=== PATIENT | female | born 1960 | race American Indian/Alaskan Native ===

== ENCOUNTER 2017-08-25 13:06 | Emergency (ER) | payer OTHER ==
[2017-08-25 13:33] VITALS: BP 151/96
--- NOTE | 2017-08-25 14:06 | Emergency Department Report ---
HPI - General Chief Complaint: Fall Time Seen by Provider: 08/25/17 13:37 - HPI HPI: 57-year-old female presents to the emergency department by EMS from work after patient slipped on some water that was on the floor and fell onto her left side. She presents with left knee pain, left hamstring pain, left hip pain and left shoulder pain. She denies hitting her head or any loss of consciousness. She was given some Toradol in route with some improvement. She has a past medical history of [id number] diabetes. She has a primary care physician for follow-up. ED Past Medical Hx - Past Medical History Previous Medical History?: No - Surgical History Additional Surgical History: Hysterectomy, breast reduction - Social History Smoking Status: Never Smoker Substance Use Type: None - Medications Home Medications: Home Medications Medication Instructions Recorded Confirmed Last Taken Type methOCARBAMOL [Robaxin TAB] 500 mg PO BID PRN #12 tab 08/25/17 Unknown Rx ED Review of Systems ROS: Stated complaint: DISLOCATED HIP Other details as noted in HPI Comment: All other systems reviewed and negative Constitutional: denies: chills, fever Eyes: denies: eye pain, eye discharge, vision change ENT: denies: ear pain, throat pain Respiratory: denies: cough, shortness of breath, wheezing Cardiovascular: denies: chest pain, palpitations Gastrointestinal: denies: abdominal pain, nausea, diarrhea Genitourinary: denies: urgency, dysuria, discharge Musculoskeletal: arthralgia, myalgia. denies: back pain Skin: denies: rash, lesions Neurological: denies: headache, weakness, paresthesias Physical Exam - Physical Exam Vital Signs: Vital Signs 08/25/17 13:30 Temperature 98.6 F Pulse Rate 88 Respiratory 18 Rate Blood Pressure 151/96 O2 Sat by Pulse 98 Oximetry Physical Exam: GENERAL: The patient is well-developed well-nourished. HENT: Normocephalic. Atraumatic. Patient has moist mucous membranes. EYES: Extraocular motions are intact. Pupils equal reactive to light bilaterally. NECK: Supple. Trachea is midline. CHEST/LUNGS: Clear to auscultation. There is no respiratory distress noted. HEART/CARDIOVASCULAR: Regular. There is no tachycardia. There is no murmur. ABDOMEN: Abdomen is soft, nontender. Patient has normal bowel sounds. There is no abdominal distention. SKIN: Skin is warm and dry. There is a small abrasion to the anterior left knee. NEURO: The patient is awake, alert, and oriented. The patient is cooperative. The patient has no focal neurologic deficits. The patient has normal speech and gait. MUSCULOSKELETAL: Patient has tenderness palpation to the left anterior knee. Negative anterior and posterior drawer test. No laxity to valgus or varus stress. She also has some tenderness to the left hip and left shoulder but no obvious deformity. There is some decreased range of motion of the left lower extremity secondary to pain. Radial pulse +2 over 4 to the left wrist. ED Course Vital Signs 08/25/17 13:30 Temperature 98.6 F Pulse Rate 88 Respiratory 18 Rate Blood Pressure 151/96 O2 Sat by Pulse 98 Oximetry ED Medical Decision Making - Radiology Data Radiology results: image reviewed interpreted by me: X-ray of the left femur, the pelvis and the left shoulder do not show any fractures, dislocations or any acute processes. - Medical Decision Making Patient had a slip and fall at work in which she says that she did a split and presents with left knee pain, left hamstring pain, left hip pain and some left shoulder pain. No hitting her head or any loss of consciousness. Vital signs stable. X-rays were done of the femur, pelvis and shoulder and they all showed no signs of fracture, dislocation or any other acute process. The patient understands that the x-rays only show bone and joint spacing and that she may need an MRI in the future to evaluate the meniscus, or any ligaments or tendons that may have been injured. She was placed in a knee immobilizer and given crutches and was seen ambulatory in the emergency department using these supports and appeared stable while doing so. She will follow-up with her primary care doctor and was given 2 different orthopedic referrals. She will return to the emergency Department with any worsening of her symptoms or any acute distress. - Differential Diagnosis fracture, dislocation, sprain, strain, spasm, contusion Critical Care Time: No Critical care attestation.: If time is entered above; I have spent that time in minutes in the direct care of this critically ill patient, excluding procedure time. ED Disposition Clinical Impression: Left leg pain Left knee pain Qualifiers: Chronicity: acute Qualified Code(s): M25.562 - Pain in left knee Left shoulder pain Qualifiers: Chronicity: acute Qualified Code(s): M25.512 - Pain in left shoulder Fall Qualifiers: Encounter type: initial encounter Qualified Code(s): W19.XXXA - Unspecified fall, initial encounter Disposition: TO HOME OR SELFCARE Is pt being admited?: No Condition: Stable Instructions: Knee Pain (ED), Arthralgia (ED) Additional Instructions: Please follow-up with your primary care physician. Please follow-up with an orthopedist. I have given you a referral for 2 different orthopedic groups. Use the knee immobilizer and crutches as necessary. If you continue to have discomfort to the knee, leg and/or shoulder, you may need an MRI in the future to evaluate the ligaments, tendons, cartilage. Return to the emergency Department with any worsening of your symptoms or any acute distress. You can use Rest, Ice, Eleavation and Compression for your discomfort. You can use tylenol every 4 hours and ibuprofen every 6 hours, using weight-based dosing, as needed for discomfort. You have been prescribed a medication that is sedating and therefore should not be taken prior to driving, working, and responsible for children and in no way should be mixed with alcohol of any quantity. Prescriptions: methOCARBAMOL [Robaxin TAB] 500 mg PO BID PRN #12 tab PRN Reason: Muscle Spasm Referrals: [facility] [Provider Group] - 3-5 Days ROSA GIFFORD MD [Staff Physician] - 3-5 Days Time of Disposition: 15:47
--- NOTE | 2017-08-25 14:52 | XRay Report ---
AP PELVIS: HISTORY: pain. AP view of the pelvis shows normal pelvic contour and soft tissues. The hips are symmetric and within normal limits as are the sacroiliac joints. IMPRESSION: Pelvis within normal limits.
--- NOTE | 2017-08-25 14:52 | XRay Report ---
LEFT FEMUR: HISTORY: pain AP and lateral views of the femur demonstrate normal mineralization and contours for this patient's age. No destructive changes are noted and the adjacent soft tissues are normal. IMPRESSION: Left femur are within normal limits.
--- NOTE | 2017-08-25 14:53 | XRay Report ---
LEFT SHOULDER, 3 VIEWS: History: Left shoulder pain. Findings: Minimal osteoarthritic changes are identified. No evidence for fracture, dislocation, ligamentous injury or bone lesion. The soft tissues are within normal limits. IMPRESSION: Minimal osteoarthritis.
--- NOTE | 2017-08-25 18:07 | History and Physical Report ---
Medications and Allergies Allergies Allergy/AdvReac Type Severity Reaction Status Date / Time codeine Allergy Hives Verified 08/25/17 13:34 NSAIDS (Non-Steroidal Allergy Hives Verified 08/25/17 13:33 Anti-Inflamma Penicillins Allergy Hives Verified 08/25/17 13:33 Sulfa (Sulfonamide Allergy Hives Verified 08/25/17 13:33 Antibiotics) Home Medications Medication Instructions Recorded Confirmed Last Taken Type methOCARBAMOL [Robaxin TAB] 500 mg PO BID PRN #12 tab 08/25/17 Unknown Rx Exam - Constitutional Vitals: Temp Pulse Resp BP Pulse Ox 98.6 F 88 18 151/96 98 08/25/17 13:30 08/25/17 13:30 08/25/17 13:30 08/25/17 13:30 08/25/17 13:30
== END 2017-08-25 16:00 | disposition home or self-care (01) ==
LOC: ED 13:06
DX: M25.562 Pain in left knee (principal); M25.552 Pain in left hip; M25.512 Pain in left shoulder; E11.9 Type 2 diabetes mellitus without complications; Z90.710 Acquired absence of both cervix and uterus; Z88.5 Allergy status to narcotic agent; Z88.6 Allergy status to analgesic agent; W01.0XXA Fall on same level from slipping, tripping and stumbling without subsequent striking against object, initial encounter; Y93.89 Activity, other specified; Y99.0 Civilian activity done for income or pay; Y92.69 Other specified industrial and construction area as the place of occurrence of the external cause
CPT/HCPCS: 72170